=== PATIENT | male | born 1975 | race Caucasian/White ===

== ENCOUNTER 2022-02-19 15:33 | Emergency (ER) | payer BC, SELFPAY ==
[2022-02-19 15:40] VITALS: BP 144/82; PULSE 89; RESP 18; TEMP 36.7; O2SAT 98; BMI 35.6
--- NOTE | 2022-02-19 16:10 | XRR_ITS ---
PROCEDURE INFORMATION: Exam: XR Left Knee Exam date and time: 02/19/2022 4:18 PM Age: 46 years old Clinical indication: Injury or trauma; Other: Laceration; Patella or knee; Left; Foreign body involvement not specified; Additional info: Laceration to left knee TECHNIQUE: Imaging protocol: Radiologic exam of the Left knee. Views: 3 views. COMPARISON: No relevant prior studies available. FINDINGS: Bones/joints: Normal. Soft tissues: Normal. No visible foreign body. XR/XR knee LT 3V* [id number] IMPRESSION: No acute findings.
--- NOTE | 2022-02-19 16:11 | ED_ITS ---
HPI - Wound/Laceration General: Chief Complaint: Wound/Laceration Stated Complaint: Left leg lac by chainsaw Time Seen by Provider: 02/19/22 16:05 History of Present Illness: Patient is a 46-year-old male comes to the ED with a laceration to left knee. Patient says he was cutting some wood with a chainsaw and accidentally cut left knee. Patient thinks he only cut skin and does not think he got deep enough to hit any bone. He is able to walk and ambulate on left leg without any pain. He was at the [facility] initially and they cleaned laceration site and sent him here to the ED for further evaluation. Associated symptoms: Denies chills, fever(s), nausea or vomiting Review of Systems Const: Denies: fever(s), chills or fatigue Eyes: Denies: change in vision or eye discomfort ENMT: Denies: throat pain, odynophagia, nasal discharge or nasal congestion Card: Denies: chest pain, palpitations, edema, swelling of feet/ankles, dyspnea on exertion or orthopnea Resp: Denies: dyspnea, productive cough or non-productive cough GI: Denies: abdominal pain, nausea, vomiting, diarrhea, constipation or hematochezia : Denies: flank pain, difficulty urinating, dysuria or hematuria Musc: Denies: neck pain, back pain or extremity swelling Skin/Breast: Denies: rash or new lesions Neuro: Denies: headache(s), numbness in extremities or weakness in extremities PFS ED PFSH: Medical History (Updated 02/20/22 @ 16:14 by ALEXANDER Bell) No pertinent family history Surgical History (Updated 02/20/22 @ 16:14 by ALEXANDER Bell) No pertinent past surgical history Physical Exam Const: COMMON NORMALS: no acute distress, patient oriented x3 and alert HENMT: COMMON NORMALS: normocephalic HEAD & SCALP: normocephalic MOUTH: Normal oral and palatal mucosa present THROAT: posterior oropharynx normal and uvula midline Neck/C-Spine: COMMON NORMALS: supple GENERAL: Yes normal visual inspection Resp: COMMON NORMALS: normal respiratory effort, No retractions, No use of accessory muscles and clear to auscultation bilaterally AUSCULTATION: clear to auscultation bilaterally Cardio: COMMON NORMALS: regular rate, regular rhythm, S1 normal heart sound present, S2 normal heart sound present, No gallops present (Cardio), No clicks present (Cardio), No murmurs present (Cardio) and Peripheral pulses 2+ t hroughout RATE: regular rate RHYTHM: regular rhythm HEART SOUNDS: S1 normal heart sound present and S2 normal heart sound present PERIPHERAL PULSES: Peripheral pulses 2+ throughout GI: COMMON NORMALS: Normal to inspection, nondistended, normoactive bowel sounds present, Soft to palpation, non-tender and no masses PALPATION: Yes Soft to palpation : COMMON NORMALS: Yes no CVA tenderness BLADDER/KIDNEY EXAM: Yes no CVA tenderness Back/Pelvis: COMMON NORMALS: no CVA tenderness Extremity: NARRATIVE EXTREMITY EXAM: Left knee?5 cm linear laceration. No visible bleeding or contaminants seen. Neuro: COMMON NORMALS: patient oriented x3 SENSORIUM/ORIENTATION: Yes alert GAIT: Yes Normal gait present Skin: GENERAL SKIN EXAM: dry skin Procedures Laceration Laceration 1: Site: lower extremity (Left knee) Side (If applicable): left Size (cm): 5 Description: linear Depth: simple, single layer Local Anesthetic: lidocaine 1% and with epi Pre-repair: irrigated extensively (With normal saline and beta iodine wash.) Skin layer closed with: nylon Size (cm): 3-0 Number of sutures: 6 Technique: simple, interrupted (4) and horizontal mattress (2) Course Vital Signs: Vital signs: Vital Signs Temperature 98.0 F 02/19/22 15:40 Pulse Rate 89 02/19/22 15:40 Respiratory Rate 18 02/19/22 15:40 Blood Pressure 144/82 02/19/22 15:40 Pulse Oximetry 98 02/19/22 15:40 Oxygen Delivery Me thod 02/19/22 15:40 MDM - Wound/Laceration Medical Decision Making Patient is a 46-year-old male comes to the ED with a laceration to left knee. Patient was given updated tetanus here in the ED. Left knee x-ray showed no acute findings. Laceration is superficial approximately 5 cm in length. Lidocaine 1% with epi was used as local. Laceration site was irrigated extensively with normal saline and beta iodine. 6 sutures were placed in total to close up laceration site. Triple antibiotic ointment was placed on laceration site along with bandage and patient was stable for discharge home. He was sent home with a prescription for cephalexin. He was instructed on how to care for laceration site and when to have sutures removed. Lab Data Radiology Impressions Knee X-Ray 02/19/22 16:10 IMPRESSION: No acute findings. Discharge Plan Discharge Patient Disposition: Home Clinical Impression: Laceration of knee Qualifiers: Encounter type: initial encounter Laterality: left Qualified Code(s): S81.012A - Laceration without foreign body, left knee, initial encounter Condition: Stable Prescriptions: New cephalexin 500 mg capsule 500 mg PO Q6H 7 Days Qty: 28 0RF Discharge Orders: Discharge ED (Routine); Ordered 02/19/22 Ordered By: Agustín Torres Discharge Diet: Regular Discharge Activity: Increase activity as tolerated Patient Instructions: Laceration Activity Restrictions/Additional Instructions: Take full course of antibiotics as prescribed. Keep laceration site clean and dry. Clean daily with soap and water and then apply thin layer of triple antibiotic ointment on it and cover with bandage. Watch for signs of infection such as redness, warmth, increased tenderness and puslike drainage. If you see the signs of infection return to the ED, urgent care or PCP for reevaluation. ca ll your PCP to schedule a follow-up appointment for reevaluation and suture removal in about 7- 10 days. Continue taking all home meds. Follow discharge plans as discussed. You can return to the ED if symptoms worsen. Coding Level of Care Code ED Boring Mill Set Up Operator Vertical for Amrik Tran Exam Comprehensive
[2022-02-19] MEDS: tetanus-dipt-pertussis 0.5 mL SDV IM (17:01)
[2022-02-19] MEDS: neomycin-poly-bacitracin oint 28 gm 1 APPLIC TOPICAL (17:58)
== END 2022-02-19 18:01 | disposition home or self-care (01) ==
PROVIDERS: Emergency Provider Physician Assistant
DX: S81.012A Laceration without foreign body, left knee, initial encounter (principal); W29.3XXA Contact with powered garden and outdoor hand tools and machinery, initial encounter; Z23 Encounter for immunization
CPT/HCPCS: 12002; 73562; 90471; 90715; 99283

== ENCOUNTER 2023-05-02 23:38 | Emergency (ER) | payer BC, SELFPAY ==
[2023-05-02 23:42] VITALS: BP 124/76; PULSE 94; RESP 20; TEMP 36.6; O2SAT 99; BMI 27.5
--- NOTE | 2023-05-02 23:45 | XRR_ITS ---
PROCEDURE INFORMATION: Exam: XR Right Shoulder Exam date and time: 05/02/2023 11:48 PM Age: 47 years old Clinical indication: Injury or trauma; Other: See below; Patient HX: Patient says he tried to catch a heavy log that was falling TECHNIQUE: Imaging protocol: Radiologic exam of the right shoulder. Views: 2 or more views. COMPARISON: No relevant prior studies available. FINDINGS: Bones/joints: Calcific density noted adjacent to the humeral greater tuberosity may reflect calcific tendinitis/tendinosis. No evidence of acute fracture or dislocation. Mild acromioclavicular osteoarthritis. Soft tissues: Normal. XR/XR shoulder RT min 2V* [id number] IMPRESSION: No acute bony injury. Possible calcific tendinitis adjacent to the greater tuberosity.
--- NOTE | 2023-05-02 23:46 | ED_ITS ---
HPI - Extremity Problem General: Chief complaint: Extremity Injury, Upper Stated complaint: hurt left arm Time Seen by Provider: 05/02/23 23:41 History of Present Illness: 47-year-old male patient comes in today for injury to the right shoulder. Patient reports at about 5:00 this evening he was loading some wood onto a truck when one of the logs shifted shifted causing him to reach out to try to restrain the lumbar. Patient felt a pop in his shoulder. Patient reports pain and discomfort inability to sleep due to the pain. Patient does have a history of prior impingement syndrome in the shoulder. Patient reports no other chronic medical problems. Review of Systems General: Reports: 10 or more systems reviewed and unremarkable except in HPI and below Musc: Reports: joint pain (Right shoulder injury) PFS ED PFSH: Medical History (Updated 05/03/23 @ 00:16 by ELSA Goss) No pertinent family history Surgical History (Updated 02/20/22 @ 16:14 by ALEXANDER Bell) No pertinent past surgical history Physical Exam Const: COMMON NORMALS: alert HENMT: COMMON NORMALS: normocephalic and atraumatic HEAD & SCALP: normocephalic and atraumatic Neck/C-Spine: COMMON NORMALS: full ROM CERVICAL SPINE: Yes cervical ROM normal Resp: COMMON NORMALS: normal respiratory effort and clear to auscultation bilaterally AUSCULTATION: clear to auscultation bilaterally Cardio: COMMON NORMALS: regular rate and regular rhythm RATE: regular rate RHYTHM: regular rhythm GI: COMMON NORMALS: non-tender Back/Pelvis: COMMON NORMALS: thoracic and lumbar spine normal to inspection Extremity: RIGHT UPPER EXTREMITY: Yes shoulder joint (Anterior tenderness, decreased range of motion due to pain) Right shoulder: Yes Right shoulder joint inspection exam, Yes palpation, Yes Right shoulder joint ROM exam and Yes Right shoulder joint neurovascular exam, Yes lower arm (Distal abrasion) and Yes hand & digits (Dorsal abrasion) Neuro: SENSORIUM/ORIENTATION: Yes alert Skin: TRAUMA: abrasion (Abrasion right wrist and hand) Course Vital Signs: Vital signs: Vital Signs Temperature 98 F 05/02/23 23:42 Pulse Rate 94 05/02/23 23:42 Respiratory Rate 20 H 05/02/23 23:42 Blood Pressure 124/76 05/02/23 23:42 Pulse Oximetry 99 05/02/23 23:42 MDM - Extremity (Nontraumatic) Medical Decision Making 47-year-old male patient comes in for injury to the right shoulder and upper extremity. On exam patient moves extremities well. Distal pulses and sensation are intact. Cap refill is intact. Patient has an abrasion to his distal wrist and dorsal right hand. Differential diagnosis includes rotator cuff injury, impingement syndrome, strain, dislocation. X-rays noted degenerative changes but no dislocation. Believe the patient has an injury to his rotator cuff by how he explained his manipulation of his arm and shoulder. Patient was given 30 mg of ketorolac for pain. Patient was recommended use ice packs. Patient was prescribed diclofenac and hydrocodone for home use. Case management was requested to assist with patient follow-up with orthopedics for further ev aluation and treatment. Patient agreed to plan and need for follow-up or return to the ER. XR interpretation done by ED provider, pending radiology final review Discharge Plan Discharge Patient Disposition: Home Clinical Impression: Acute shoulder pain due to trauma Qualifiers: Laterality: right Qualified Code(s): M25.511 - Pain in right shoulder Rotator cuff (capsule) sprain Qualifiers: Encounter type: initial encounter Laterality: right Qualified Code(s): S43.421A - Sprain of right rotator cuff capsule, initial encounter Condition: Stable Prescriptions: New diclofenac sodium 75 mg tablet,delayed release (DR/EC) 75 mg PO BID Qty: 20 0RF hydrocodone-acetaminophen 5-325 mg tablet 1 tab PO Q6H PRN (Reason: pain) 5 Days Qty: 12 0RF Discharge Orders: Discharge ED (Routine); Ordered 05/03/23 Ordered By: Francisco Lux Discharge Diet: Usual diet Discharge Activity: Increase activity as tolerated Patient Instructions: Shoulder Sprain (ED), Opioid Safety Activity Restrictions/Additional Instructions: Use ice packs to the shoulder to help with pain and discomfort. Take diclofenac 75 mg 1 tablet twice a day for pain and inflammation. You may also use [id number] acetaminophen for further pain relief. Do not use ibuprofen or naproxen while taking diclofenac. Use hydrocodone for severe pain. Follow-up w ith primary care for further instructions. Case management will contact you regarding a follow-up appointment with rac specialist. Coding Level of Care Code ED Explosive Ordnance Disposal Specialist for Amrik Tran
[2023-05-02] MEDS: ketorolac 30 mg/mL INJ IM (23:53)
[2023-05-03] MEDS: HYDROcodone-acetaminophen 7.5-325 mg Tablet 2 TAB PO (00:24)
--- NOTE | 2023-05-03 10:56 | DCPLANNER ---
Message was sent to ortho on 05/03/23 at [id number]. Clinic to contact patient
== END 2023-05-03 00:28 | disposition home or self-care (01) ==
PROVIDERS: Emergency Provider Nurse Practitioner Family
DX: S43.421A Sprain of right rotator cuff capsule, initial encounter (principal); X50.9XXA Other and unspecified overexertion or strenuous movements or postures, initial encounter
CPT/HCPCS: 73030; 96372; 99284; J1885

== ENCOUNTER 2023-06-27 08:15 | Outpatient (CLI) | payer BC, SELFPAY ==
--- NOTE | 2023-06-27 08:45 | MR_ITS ---
WS: [id number] MRI RIGHT SHOULDER HISTORY: right shoulder injury COMPARISON: Shoulder radiograph 05/02/2023 TECHNIQUE: Multiplanar sequences of the shoulder joint are submitted. Severe AC joint arthritis. Increased edema without focal lucency through the distal clavicle. Suspect there is a nondisplaced distal clavicular fracture. There is a very small amount of fluid in the sub acromial and subdeltoid bursa. Distal clavicular opted to fight measuring 3.7 cm with mild encroachme nt upon the myotendinous insertion of the supraspinatus. Minimal subacromial impingement. Partial sub luxation and displacement of the biceps tendon in the bicipital groove. No os acromion. No rotator cuff tear. No edema or atrophy of the rotator cuff muscles. Mild tendinopathy in the supra spinatus. Tiny focus of low signal associated with the distal supraspinatus from calcific tendinitis that was previously described. No labral tear. No marrow edema in the humeral head. Thickening and in creased T2 signal in the distal subscapularis tendon at the coracohumeral interval. IMPRESSION: 1. Subluxation of the biceps tendon from the bicipital groove. 2. Severe AC joint arthropathy. 3. Suspect nondisplaced fracture involving the distal clavicle. 4. Mild osteophyte encroachment upon the supraspinatus myotendinous insertion from the distal clavic le. 5. No rotator cuff tear. 6. Mild calcific tendinitis distal supraspinatus tendon. 7. Mild tendinopathy distal supraspinatus tendon. 8. Additional moderate tendinopathy in the subscapularis tendon at the level of the coracohumeral in terval. This is also at the site of the subluxed partially dislocated biceps tendon.
== END 2023-06-27 08:16 | disposition home or self-care (01) ==
LOC: RAD 08:16
PROVIDERS: PCP Family Medicine; Visit Provider Specialist
DX: S49.91XA Unspecified injury of right shoulder and upper arm, initial encounter (principal); X58.XXXA Exposure to other specified factors, initial encounter
CPT/HCPCS: 73221

== ENCOUNTER 2024-02-12 12:33 | Emergency (ER) | payer BC, SELFPAY ==
[2024-02-12 12:49] VITALS: BP 126/75; PULSE 65; RESP 15; TEMP 37.1; O2SAT 99; BMI 33.7
--- NOTE | 2024-02-12 13:10 | ED_ITS ---
HPI - Wound/Laceration 2 General: Chief Complaint: Wound/Laceration Stated Complaint: facial lac Time Seen by Provider: 02/12/24 13:09 Source: patient Mode of arrival: ambulatory Limitations: no limitations History of Present Illness: Patient is a nice 48-year-old male presents to ED today with a complaint of a facial/chin laceration that he sustained just prior to arrival after using some type of glaze grinder stating the blade came off and struck him to the chin. Tetanus is up-to-date. He states he does take blood thinners for a previous [place]. States his jaw is painful and swollen. He has no other injuries or complaints at this time. Onset (ago): hour(s) Location: face Place: home Patient tetanus UTD: Yes Context: accidental Associated symptoms: Reports no associated symptoms; Denies nausea or vomiting Treatments prior to arrival: bandage Related Data Home Medications Medication Instructions Recorded Confirmed aspirin 81 mg capsule 81 mg PO DAILY 06/03/23 06/03/23 atorvastatin 10 mg tablet (Lipitor) 10 mg PO DAILY 06/03/23 06/03/23 lisinopril 5 mg tablet 40 mg PO DAILY 06/03/23 06/03/23 metformin 500 mg tablet 500 mg PO DAILY 06/03/23 06/03/23 nitroglycerin 0.4 mg sublingual 0.4 mg sublingual Q5M PRN 06/03/23 06/03/23 tablet omeprazole 20 mg capsule,delayed 20 mg PO DAILY 06/03/23 06/03/23 release semaglutide 1 mg/dose (4 mg/3 mL) mg SUBCUT 06/03/23 06/03/23 subcutaneous pen injector (Ozempic) Previous Rx's Medication Instructions Recorded diclofenac sodium 75 mg 75 mg PO BID #20 tabs 05/03/23 tablet,delayed release cephalexin 500 mg capsule 500 mg PO Q6H 7 days #28 caps 02/12/24 hydrocodone 5 mg-acetaminophen 325 1 tab PO Q6H PRN pain #14 tabs 02/12/24 mg tablet Allergies Allergy/AdvReac Type Severity Reaction Status Date / Time No Known Allergies Allergy Unverified 06/03/23 13:35 Review of Systems 2 Eyes: Denies: change in vision, blurry vision, floaters or seeing flashes ENMT: Reports: other (chin laceration/swelling); Denies: throat pain, odynophagia or swelling of lips/tongue Card: Denies: chest pain Resp: Denies: dyspnea GI: Denies: nausea or vomiting Musc: Denies: neck pain Neuro: Denies: headache(s) or dizziness PFSH ED 2 PFSH: Medical History No pertinent family history Surgical History No pertinent past surgical history Physical Exam 2 Const: COMMON NORMALS: no acute distress, average body habitus, patient oriented x3, no limitations, healthy appearing, alert and well nourished G ENERAL APPEARANCE: cooperative ORIENTATION/CONSCIOUSNESS: Yes awake, Yes oriented to person, Yes oriented to place and Yes oriented to time HENMT: COMMON NORMALS: normocephalic, atraumatic and Normal external nose present HEAD & SCALP: normal to inspection, normocephalic and atraumatic F MARCELLUS & SINUS: sinuses nontender, edema (overlying chin) and laceration FACE & SINUS IMAGES: 1. laceration/edema/hematoma NOSE: Normal external nose present MOUTH: other (contusion inner lower lip) TEETH & GINGIVA: Yes other (no dental injuries noted ) THROAT: posterior oropharynx normal and tonsils normal Eye: GENERAL EYE: appearance normal, both eyes and all related structures Neck/C-Spine: COMMON NORMALS: full ROM GENERAL: Yes normal visual inspection CERVICAL SPINE: No Cervical spine tenderness Neuro: COMMON NORMALS: patient oriented x3 SENSORIUM/ORIENTATION: Yes alert, Yes oriented to person, Yes oriented to place and Yes oriented to time Procedures Laceration Laceration 1: Site: face (chin) Size (cm): 8.0 Description: linear Depth: simple, single layer Local Anesthetic: lidocaine 1% and with epi Amount of anesthesia used (mL): 7.0 Pre-repair: wound explored and irrigated extensively Skin layer closed with: nylon Size (cm): 3-0 Number of sutures: 13 Technique: simple, interrupted and running Course 2 Vital Signs: Vital signs: Vital Signs Temperature 98.7 F 02/12/24 12:49 Pulse Rate 65 02/12/24 12:49 Respiratory Rate 16 02/12/24 13:20 Blood Pressure 126/75 02/12/24 12:49 Pulse Oximetry 99 02/12/24 12:49 Oxygen Delivery Me thod Room Air 02/12/24 12:49 MDM - Wound/Laceration Medical Decision Making Wound was copiously irrigated and repaired as documented. CT scan showing no acute fracture but does have innumerable tiny radiopaque foreign bodies/grinding material given the history. Again, wound was copiously irrigated as much as feasible. Tetanus was up-to-date. He will be placed on prophylactic antibiotics and given pain medication. Return to ED precautions given. Differential Diagnosis Likely laceration Medical Records I reviewed the patient's medical records. Lab Data Radiology Impressions Face CT 02/12/24 13:13 IMPRESSION: 1. Submental soft tissue laceration with contusion. 2. No acute fractures. 3. Innumerable tiny radiopaque foreign bodies in the submental soft tissues in the area of laceration likely tiny metal fragments All radiology interpretation(s) finalized by discharge Discharge Plan Discharge Patient Disposition: Home Clinical Impression: Chin laceration Qualifiers: Encounter type: initial encounter Qualified Code(s): S01.81XA - Laceration without foreign body of other part of head, initial encounter Condition: Stable Prescriptions: New hydrocodone-acetaminophen 5-325 mg tablet 1 tab PO Q6H PRN (Reason: pain) Qty: 14 0RF cephalexin 500 mg capsule 500 mg PO Q6H 7 Days Qty: 28 0RF No Action metformin 500 mg tablet 500 mg PO DAILY atorvastatin [Lipitor] 10 mg tablet 10 mg PO DAILY omeprazole 20 mg capsule,delayed release(DR/EC) 20 mg PO DAILY Ozempic 1 mg/dose (4 mg/3 mL) pen injector SUBCUT nitroglycerin 0.4 mg tablet, sublingual 0.4 mg sublingual Q5M PRN Rx Instructions: do not exceed 3 doses per episode lisinopril 5 mg tablet 40 mg PO DAILY aspirin 81 mg capsule 81 mg PO DAILY diclofenac sodium 75 mg tablet,delayed release (DR/EC) 75 mg PO BID Qty: 20 0RF Discharge Orders: Discharge ED (Routine); Ordered 02/12/24 Ordered By: Yeny Bazzi Referrals: Bere Enriquez MD [Primary Care Provider] - Patient Instructions: Facial Laceration (ED) Activity Restrictions/Additional Instructions: Keep wound/laceration clean with warm soap and water twice daily. Monitor for signs of infection such as redness, swelling, increased pain, or drainage. Please seek medical re-evaluation if these occur. If you received sutures today these will need to be removed (unless you were told by the provider that they are absorbable). The provider should have discussed with you the length of time until removal-7 TO 10 DAYS. As we discussed, there were innumerable small glaze grinder particles within your laceration. It was copiously irrigated but it is not feasible to remove all of these. These will either retain in place or eventually work themselves out. Coding Level of Care Code ED Glue Maker Bone for Amrik Tran
--- NOTE | 2024-02-12 13:13 | CT_ITS ---
WS: [id number] CT FACIAL BONES TECHNIQUE: Noncontrast facial bones with coronal and sagittal reformatted images. CLINICAL INFORMATION: chin laceration/trauma/hematoma/poss fb COMPARISON: None. DLP: 687.[address] scans at [facility] use at least one of these dose optimization techniques: automated e xposure control; mA and/or kV adjustment per patient size (includes targeted exams where dose is matc hed to clinical indication); or iterative reconstruction. FINDINGS: Submental soft tissue laceration with underlying fluid and edema with associated hematoma. Innumerabl e tiny radiopaque foci compatible with tiny foreign bodies. No visualized fractures. No evidence of m andibular dislocation. Mild mucosal thickening in the ethmoid air cells. Mastoid air cells are well aerated. Normal posterio r nasopharynx. Normal parapharyngeal fat. CT/CT facial bones wo con* [id number] IMPRESSION: 1. Submental soft tissue laceration with contusion. 2. No acute fractures. 3. Innumerable tiny radiopaque foreign bodies in the submental soft tissues in the area of laceration likely tiny metal fragments
[2024-02-12 13:20] VITALS: RESP 16
[2024-02-12] MEDS: morphine 4 mg/mL SDV 1 mL IM (13:20)
[2024-02-12] MEDS: ondansetron 2 mg/ML SDV 2 mL 4 MG IM (13:20)
--- NOTE | 2024-02-12 14:07 | PC.NURSE ---
Lac cleaned with peroxide per provider d/t blood dried into patients mcneil. Attempted to soak with lubricant first, which did remove some of the dried blood from his facial hair. 3 boxed of 4x4s opened and used. Coban reapplied with gauze post cleaning for rebleed.
[2024-02-12 15:37] VITALS: BP 126/79; PULSE 88; RESP 18; O2SAT 98
== END 2024-02-12 15:46 | disposition home or self-care (01) ==
PROVIDERS: Emergency Provider Physician Assistant; PCP Family Medicine
DX: S01.81XA Laceration without foreign body of other part of head, initial encounter (principal); Z79.82 Long term (current) use of aspirin; Z79.85 Long-term (current) use of injectable non-insulin antidiabetic drugs; Z79.84 Long term (current) use of oral hypoglycemic drugs; I25.2 Old myocardial infarction; W20.8XXA Other cause of strike by thrown, projected or falling object, initial encounter
CPT/HCPCS: 12015; 70486; 96372; 99284; J2270; J2405

== ENCOUNTER 2024-09-06 00:13 | Emergency (ER) | payer BC, SELFPAY ==
[2024-09-06 00:22] VITALS: BP 178/84; PULSE 97; RESP 18; TEMP 36.6; O2SAT 100; BMI 37.5
--- NOTE | 2024-09-06 00:48 | XRR_ITS ---
PROCEDURE INFORMATION: Exam: XR Right Ankle Exam date and time: 09/06/2024 1:04 AM Age: 49 years old Clinical indication: Pain; Ankle; Right; Additional info: Trauma TECHNIQUE: Imaging protocol: Radiologic exam of the right ankle. Views: 3 or more views. COMPARISON: No relevant prior studies available. FINDINGS: Bones/joints: Normal. Soft tissues: Normal. XR/XR ankle RT min 3V* [id number] IMPRESSION: No acute findings.
--- NOTE | 2024-09-06 01:36 | W.ED.EXTPRO ---
HPI - Extremity Problem General: Chief complaint: Extremity Injury, Lower Stated complaint: right ankle/foot inj Time Seen by Provider: 09/06/24 00:53 History of Present Illness: 49-year-old male patient he says that he hurt his ankle a bit more than a week ago. He felt a pop. Had pain on the bottom of his foot, around his lateral midfoot. He had swelling at this point, and saw Dr. He has an MRI ordered as an outpatient. Tonight, he stepped in a hole, and twisted his ankle, and while he did not hear a pop this time, had increased pain and swelling. He is unable to bear weight currently. No significant numbness or tingling. Related Data Home Medications ?Medication ?Instructions ?Recorded ?Confirmed aspirin 81 mg capsule 81 mg PO DAILY 06/03/23 06/03/23 atorvastatin 10 mg tablet (Lipitor) 10 mg PO DAILY 06/03/23 06/03/23 lisinopril 5 mg tablet 40 mg PO DAILY 06/03/23 06/03/23 metformin 500 mg tablet 500 mg PO DAILY 06/03/23 06/03/23 nitroglycerin 0.4 mg sublingual 0.4 mg sublingual Q5M PRN 06/03/23 06/03/23 tablet omeprazole 20 mg capsule,delayed 20 mg PO DAILY 06/03/23 06/03/23 release semaglutide 1 mg/dose (4 mg/3 mL) mg SUBCUT 06/03/23 06/03/23 subcutaneous pen injector (Ozempic) Previous Rx's ?Medication ?Instructions ?Recorded diclofenac sodium 75 mg 75 mg PO BID #20 tabs 05/03/23 tablet,delayed release hydrocodone 5 mg-acetaminophen 325 1 tab PO Q6H PRN pain #8 tabs 09/06/24 mg tablet Allergies Allergy/AdvReac Type Severity Reaction Status Date / Time No Known Allergies Allergy Unverified 06/03/23 13:35 PFSH ED PFSH: Medical History No pertinent family history Surgical History No pertinent past surgical history Physical Exam Const: COMMON NORMALS: no acute distress GENERAL APPEARANCE: cooperative; not ill appearing and not frail appearing HENMT: COMMON NORMALS: normocephalic, atraumatic and Normal external nose present HEAD & SCALP: normocephalic and atraumatic FACE & SINUS: normal facial exam and face symmetric NOSE: Normal external nose present Eye: COMMON NORMALS: Equal, round and reactive pupils present and EOMs intact bilaterally PUPIL: Yes Equal, round and reactive pupils present Neck/C-Spine: GENERAL: Yes trachea midline Chest: CHEST: Yes Symmetrical chest wall rise Resp: COMMON NORMALS: normal respiratory effort and No retractions Cardio: COMMON NORMALS: regular rate and regular rhythm RATE: regular rate RHYTHM: regular rhythm Extremity: NARRATIVE EXTREMITY EXAM: Examination of right lower extremity reveals swelling around the right ankle and midfoot. There is some tenderness at the base of the fifth metatarsal. There is tenderness across the anterior ankle joint, and more so to the lateral ankle at the subtalar joint. No deformity. Pulses are normal. Sensation is intact. Neuro: KANWAL COMA SCALE: document GCS findings [place] coma scale eye opening: Spontaneous [place] coma scale verbal response: Orientated [place] coma scale motor response: Obey commands [place] coma scale total score: 15 SENSORY EXAM: Yes extremities (intact) Psych: COMMON NORMALS: speech normal SPEECH: Yes normal speech Course Vital Signs: Vital signs: Vital Signs Temperature 97.9 F 09/06/24 00:22 Pulse Rate 97 09/06/24 00:22 Respiratory Rate 18 09/06/24 00:22 Blood Pressure 178/84 09/06/24 00:22 Pulse Oximetry 100 09/06/24 00:22 Oxygen Delivery Me thod Room Air 09/06/24 00:22 MDM - Extremity (Nontraumatic) Medical Decision Making X-ray of the ankle is read as nonacute. There is an avulsion fracture of the fifth metatarsal base however. He will be placed in crutches and an John wrap. He is written for a cam walker boot that he can get on Saturday. He may bear weight as tolerated in this, and follow-up as an outpatient. He understands. Lab Data Radiology Impressions Ankle X-Ray 09/06/24 00:48 IMPRESSION: No acute findings. All radiology interpretation(s) finalized by discharge Discharge Plan Discharge Patient Disposition: Home Clinical Impression: Ankle sprain and strain Fracture of base of fifth metatarsal bone Qualifiers: Encounter type: initial encounter Fracture type: closed Laterality: right Qualified Code(s): S92.351A - Displaced fracture of fifth metatarsal bone, right foot, initial encounter for closed fracture Condition: Stable Prescriptions: Continued hydrocodone-acetaminophen 5-325 mg tablet 1 tab PO Q6H PRN (Reason: pain) Qty: 8 0RF No Action metformin 500 mg tablet 500 mg PO DAILY atorvastatin [Lipitor] 10 mg tablet 10 mg PO DAILY omeprazole 20 mg capsule,delayed release(DR/EC) 20 mg PO DAILY Ozempic 1 mg/dose (4 mg/3 mL) pen injector SUBCUT nitroglycerin 0.4 mg tablet, sublingual 0.4 mg sublingual Q5M PRN Rx Instructions: do not exceed 3 doses per episode lisinopril 5 mg tablet 40 mg PO DAILY aspirin 81 mg capsule 81 mg PO DAILY diclofenac sodium 75 mg tablet,delayed release (DR/EC) 75 mg PO BID Qty: 20 0RF Discharge Orders: Discharge ED (Routine); Ordered 09/06/24 Ordered By: Yunier Coleman Referrals: Bere Enriquez MD [Primary Care Provider, Family Practice] - 4-7 days Patient Instructions: Ankle Sprain (ED), Foot Fracture in Adults (ED), Opioid Safety, Pain Management Activity Restrictions/Additional Instructions: Use crutches and John wrap, elevate, ice for pain and swelling. Pain medication for significant pain. You may get your fracture boot at the medical supply office across the street from the hospital Saturday. Use the order you were prescribed. Return for problems. Follow-up with your doctor this week. Call Saturday for an appointment. Print Language: Telugu Coding Level of Care Code ED Information Services Manager for Amrik Tran
--- NOTE | 2024-09-06 01:42 | PC.NURSE ---
Pt sent home with 2xtabs oxycodone 5/[address] Coleman's order.
--- NOTE | 2024-09-07 13:27 | PC.NURSE ---
Pt's called and said their order for a cam boot was not sent to HOME from the weekend. I pulled the chart and Dr. Pretty filled out the order and sent to HOME. He also wanted pt to follow up with podiatry. Podiatry appt scheduled while on the phone for tomorrow at 1600. Pts confirmed.
== END 2024-09-06 01:50 | disposition home or self-care (01) ==
PROVIDERS: Emergency Provider Emergency Medicine; PCP Family Medicine
DX: S93.401A Sprain of unspecified ligament of right ankle, initial encounter (principal); S92.351A Displaced fracture of fifth metatarsal bone, right foot, initial encounter for closed fracture; Z79.82 Long term (current) use of aspirin; X58.XXXA Exposure to other specified factors, initial encounter
CPT/HCPCS: 73610; 99283; E0114